=== PATIENT | female | born 1935 | race Caucasian/White ===

== ENCOUNTER → 2016-12-04 | Outpatient (CLI) | payer OTHER ==
--- NOTE | ~2016-12-04 | 2DMMODE ---
[facility] [place] [address] 2 D/M-MODE ECHOCARDIOGRAM Name: CHENTENUSRAT Zimmerman Room #: REG [facility]#: [id number] Admission: 12/04/16 Attend Phys: Tae Morales, Discharge: Date of : 33 Date of Service: 12/04/16 1113 Report #: [id number] THIS REPORT FOR: //name// APPROVED REPORT Study performed: 12/04/2016 09:56:59 EXAM: Comprehensive 2D, Doppler, and color-flow Echocardiogram Patient Location: Out-Patient Blood Pressure: 104/65 mmHg HR: 67 bpm Rhythm: NSR Other Information Study Quality: Good Indications Cardiomyopathy 2D Dimensions LVEF(%): 44.39 (>50%) IVSd: 8.44 (7-11mm) LVOT Diam: 19.56 (18-24mm) LVDd: 42.09 mm PWd: 6.67 (7-11mm) Ascending Ao: 27.81 (22-36mm) LVDs: 32.94 (25-40mm) Aortic Root: 29.28 mm Mathur's LVEF: 44.39 % Volumes Left Atrial Volume (Systole) Single Plane 4CH: 26.37 mL Single Plane 2CH: 58.80 mL Aortic Valve AoV Peak Rod.: 1.08 m/s AO Peak Gr.: 4.71 mmHg LVOT Max P.84 mmHg LVOT Max V: 0.68 m/s [place] Vmax: 1.88 cm2 Mitral Valve E/A Ratio: 1.3 MV Decel. Time: 143.41 ms MV E Max Rod.: 0.65 m/s [facility] [address] [place] [address] 2 D/M-MODE ECHOCARDIOGRAM Name: NUSRAT ELDRIDGE Room #: [facility]#: [id number] Admission: 12/04/16 Attend Phys: Tae Morales, Discharge: Date of : 33 Date of Service: 12/04/16 1113 Report #: [id number] MV A Rod.: 0.51 m/s MV PHT: 41.59 ms IVRT: 83.04 ms Pulmonary Valve PV Peak Rod.: 0.78 m/s PV Peak Gr.: 2.46 mmHg Pulmonary Vein P Vein S: 55.5 m/s P Vein A: 27.82 m/s P Vein D: 61.7 m/s Tricuspid Valve TR Peak Rod.: 3.26 m/s RAP Estimate: 10.00 mmHg TR Peak Gr.: 42.46 mmHg RVSP: 52.00 mmHg Left Ventricle The left ventricle is normal size. There is normal left ventricular wall thickness. Left ventricular systolic function is borderline. LVEF is 50%. Right Ventricle The right ventricle is normal size. The right ventricular systolic function is normal. Atria Left atrium is dilated. Right atrium is dilated. Aortic Valve Aortic valve is calcified and thickened. No aortic regurgitation is present. There is no aortic valvular stenosis. Mitral Valve Mitral valve leaflets are thickened. Moderate mitral regurgitation. No evidence of mitral valve stenosis. Tricuspid Valve The tricuspid valve is normal in structure. There is moderate tricuspid regurgitation. The right atrial pressure is estimated at 10 mmHg. There is moderate pulmonary hypertension with an estimated PAP of 52 mmHg. Pulmonic Valve The pulmonary valve is normal in structure. Mild to moderate pulmonic regurgitation. Great Vessels [facility] [address] [place] [address] 2 D/M-MODE ECHOCARDIOGRAM Name: NUSRAT ELDRIDGE [id number] Admission: 12/04/16 Attend Phys: Tae Morales, Discharge: Date of : 33 Date of Service: 12/04/16 1113 Report #: [id number] The aortic root is normal in size. The ascending aorta is normal in size. IVC is dilated and collapses >50% with inspiration. Pericardium There is no pericardial effusion. <Conclusion> The left ventricle is normal size. LVEF is 50%. Aortic valve is calcified and thickened. Mitral valve leaflets are thickened. Moderate mitral regurgitation. The tricuspid valve is normal in structure. There is moderate tricuspid regurgitation. The right atrial pressure is estimated at 10 mmHg. There is moderate pulmonary hypertension with an estimated PAP of 52 mmHg. <ELECTRONICALLY SIGNED> By: Jose Holman MD 12/04/16 1113 1113 1113 Jose Holman MD /INF
== END ==
LOC: CV 08:47
DX: I42.9 Cardiomyopathy, unspecified (principal)

== ENCOUNTER → 2017-12-04 | Outpatient (CLI) | payer OTHER ==
--- NOTE | ~2017-12-04 | 2DMMODE ---
[facility] [address] [place] [address] 2 D/M-MODE ECHOCARDIOGRAM Name: CHENTENUSRAT Elsie Room #: REG [facility]#: [id number] Admission: 12/04/17 Attend Phys: Tae Morales, Discharge: Date of : 33 Date of Service: 12/04/17 1301 Report #: [id number] THIS REPORT FOR: //name// APPROVED REPORT Study performed: 12/04/2017 10:58:56 EXAM: Comprehensive 2D, Doppler, and color-flow Echocardiogram Patient Location: Out-Patient Status: routine BSA: 1.60 HR: 76 bpm BP: 113/67 mmHg Rhythm: NSR Other Information Study Quality: Good Indications Cardiomyopathy status post chemo. 2D Dimensions RVDd: 36.39 mm LVEF(%): 47.44 (>50%) IVSd: 6.87 (7-11mm) LVOT Diam: 19.16 (18-24mm) LVDd: 43.64 mm PWd: 6.65 (7-11mm) Ascending Ao: 26.87 (22-36mm) LVDs: 33.33 (25-40mm) Aortic Root: 30.42 mm Mathur's LVEF: 47.44 % Volumes Left Atrial Volume (Systole) Single Plane 4CH: 55.80 mL Single Plane 2CH: 58.41 mL LA ESV Index: 39.00 mL/m2 Aortic Valve AoV Peak Rod.: 1.36 m/s AO Peak Gr.: 7.43 mmHg LVOT Max P.77 mmHg LVOT Max V: 0.83 m/s [place] Vmax: 1.76 cm2 Mitral Valve E/A Ratio: 2.0 MV Decel. Time: 151.78 ms [facility] [employer] [place] [address] 2 D/M-MODE ECHOCARDIOGRAM Name: NUSRAT ELDRIDGE Room #: [facility]#: [id number] Admission: 12/04/17 Attend Phys: Tae Morales, Discharge: Date of : 33 Date of Service: 12/04/17 1301 Report #: [id number] MV E Max Rod.: 1.00 m/s MV A Rod.: 0.50 m/s MV PHT: 44.02 ms IVRT: 83.04 ms Pulmonary Valve PV Peak Rod.: 0.66 m/s PV Peak Gr.: 1.73 mmHg Pulmonary Vein P Vein S: 0.36 m/s P Vein D: 0.50 m/s P Vein S/D Ratio: 0.72 Tricuspid Valve TR Peak Rod.: 3.09 m/s RAP Estimate: 10.00 mmHg TR Peak Gr.: 38.25 mmHg PA Pressure: 49.00 mmHg Left Ventricle The left ventricle is normal size. There is normal LV segmental wall motion. There is normal left ventricular wall thickness. The left ventricular systolic function is low normal. LVEF is 50%. Moderate diastolic dysfunction is present (pseudonormal filling). Right Ventricle The right ventricle is normal size. The right ventricular systolic function is normal. Atria Left atrium is dilated. Right atrium is dilated. Aortic Valve The aortic valve is mildly sclerotic. No aortic regurgitation is present. There is no aortic valvular stenosis. Mitral Valve The mitral valve is normal in structure. Moderate to severe mitral regurgitation Tricuspid Valve The tricuspid valve is normal in structure. Moderate to severe tricuspid regurgitation. Estimated PAP is 50mmHg. Pulmonic Valve The pulmonary valve is normal in structure. Mild to moderate pulmonic regurgitation. [address] [address] 2 D/M-MODE ECHOCARDIOGRAM Name: NUSRAT ELDRIDGE Elsie Room #: REG [facility]#: [id number] Admission: 12/04/17 Attend Phys: Tae Morales, Discharge: Date of : 33 Date of Service: 12/04/17 1301 Report #: [id number] Great Vessels The aortic root is normal in size. The ascending aorta is normal in size. IVC is dilated and collapses >50% with inspiration. Pericardium There is no pericardial effusion. <Conclusion> The left ventricular systolic function is low normal. LVEF is 50%. Moderate diastolic dysfunction Both atria are dilated. The aortic valve is mildly sclerotic. No aortic valvular stenosis or insufficiency. The mitral valve is normal in structure. Moderate to severe mitral regurgitation Moderate to severe tricuspid regurgitation. Estimated pulmonary artery pressure of 50mmHg. There is no pericardial effusion. <ELECTRONICALLY SIGNED> By: Tae Morales MD, FACC 12/04/17 1301 1301 1301 Tae Morales MD, FACC /INF
== END ==
LOC: CV 10:45
DX: I08.1 Rheumatic disorders of both mitral and tricuspid valves (principal); I42.7 Cardiomyopathy due to drug and external agent

== ENCOUNTER → 2020-01-12 | Outpatient (CLI) | payer OTHER | LOC: SJCVCIMAG 08:28 | PROVIDERS: ATTEND Internal Medicine Cardiovascular Disease | DX: I08.8 Other rheumatic multiple valve diseases (principal); I42.9 Cardiomyopathy, unspecified; I42.7 Cardiomyopathy due to drug and external agent; G62.0 Drug-induced polyneuropathy; E78.2 Mixed hyperlipidemia; C85.92 Non-Hodgkin lymphoma, unspecified, intrathoracic lymph nodes; Z82.49 Family history of ischemic heart disease and other diseases of the circulatory system; Z79.899 Other long term (current) drug therapy ==

== ENCOUNTER → 2020-07-28 | Outpatient (CLI) | payer OTHER | LOC: SJCVC 10:38 | PROVIDERS: ATTEND Internal Medicine | DX: I42.7 Cardiomyopathy due to drug and external agent (principal); I34.0 Nonrheumatic mitral (valve) insufficiency; G62.0 Drug-induced polyneuropathy; E78.5 Hyperlipidemia, unspecified; C85.92 Non-Hodgkin lymphoma, unspecified, intrathoracic lymph nodes; Z79.899 Other long term (current) drug therapy ==

== ENCOUNTER → 2021-01-25 | Outpatient (CLI) | payer OTHER | LOC: SJCVC 09:59 | PROVIDERS: ATTEND Internal Medicine | DX: I42.7 Cardiomyopathy due to drug and external agent (principal); I34.0 Nonrheumatic mitral (valve) insufficiency; G62.0 Drug-induced polyneuropathy; E78.5 Hyperlipidemia, unspecified; C85.92 Non-Hodgkin lymphoma, unspecified, intrathoracic lymph nodes; I42.9 Cardiomyopathy, unspecified; G62.9 Polyneuropathy, unspecified; Z79.899 Other long term (current) drug therapy ==

== ENCOUNTER → 2021-07-28 | Outpatient (CLI) | payer OTHER | LOC: SJCVCIMAG 07:26 | PROVIDERS: ATTEND Internal Medicine | DX: I08.8 Other rheumatic multiple valve diseases (principal); I42.7 Cardiomyopathy due to drug and external agent; G62.0 Drug-induced polyneuropathy; E78.5 Hyperlipidemia, unspecified; C85.92 Non-Hodgkin lymphoma, unspecified, intrathoracic lymph nodes; M19.90 Unspecified osteoarthritis, unspecified site; G62.9 Polyneuropathy, unspecified; I49.1 Atrial premature depolarization; Z79.899 Other long term (current) drug therapy; Z91.041 Radiographic dye allergy status; Z82.49 Family history of ischemic heart disease and other diseases of the circulatory system ==